=== PATIENT | female | born 1995 | race Hispanic/Latino ===

== ENCOUNTER 2022-05-04 06:44 | Day surgery (SDC) | payer SELFPAY ==
[2022-04-30 08:44] LABS: BASOPHILS % (AUTO) 0.6 % (0.0-5.0); EOSINOPHILS % (AUTO) 2.1 % (0.0-8.0); LYMPHOCYTES % (AUTO) 28.2 % (21.0-51.0); MEAN CORPUSCULAR HEMOGLOBIN 29.6 pg (27.0-33.0); MEAN CORPUSCULAR HGB CONC 33.7 g/dL (32.0-36.0); MONOCYTES % (AUTO) 8.2 % (3.0-13.0); NEUTROPHILS % (AUTO) 60.3 % (40.0-77.0); PLATELET COUNT (AUTO) 233 K/uL (130-400); RED BLOOD CELL COUNT(AUTO) 5.23 MIL/uL (4.00-5.50); RED CELL DISTRIBUTION WIDTH 12.3 % (11.0-15.5); WHITE BLOOD COUNT (AUTO) 5.4 K/uL (4.8-10.8)
[2022-04-30 08:49] VITALS: BP 127/77
[2022-04-30 08:53] LABS: CREATININE 0.6 mg/dL (0.5-1.5); POTASSIUM 4.7 mmol/L (3.5-5.1)
[2022-05-04] VITALS (13 sets, daily range): BP systolic 108–122; BP diastolic 68–79
[~2022-05-04] VITALS: Ht 157.5 cm; Wt 45.4 kg
[~2022-05-04 06:44] MED LIST: 0.9%NACL 1000ML 1,000 ML IV SCH; BUPIVACAINE/PF 0.5% 10ML VIAL ONE; LIDOCAINE HCL 1% 20 ML VIAL ONE
[2022-05-04] MEDS ORDERED: LACTATED RINGERS 1000ML 1,000 ML IV ONE (07:08)
[2022-05-04] MEDS: CEFAZOLIN SODIUM 1 GM VIAL IVPB SCH ×2 (07:25→08:13)
[2022-05-04] MEDS ORDERED: MIDAZOLAM HCL 1 MG/ML 2ML VIAL ONE (08:08)
[2022-05-04] MEDS ORDERED: ROCURONIUM 10MG/1ML SYR 10 MG/ML ML ONE (08:09)
[2022-05-04] MEDS ORDERED: FENTANYL CITRATE PF 50 MCG/1 ML 2ML VIAL ONE (08:09)
[2022-05-04] MEDS ORDERED: PROPOFOL 10 MG/ML 20ML VIAL IV ONE (08:09)
[2022-05-04] MEDS ORDERED: ONDANSETRON 4MG INJ ONE (08:56)
[2022-05-04] MEDS ORDERED: NEOSTIGMINE 5MG/5ML SYR IV ONE (09:15)
[2022-05-04] MEDS ORDERED: GLYCOPYRROLATE 1 MG/5 ML SYRINGE ONE (09:15)
== END 2022-05-04 10:55 | disposition home or self-care (01) ==
LOC: DAH 06:44
PROVIDERS: ATTEND Surgery
DX: L02.31 Cutaneous abscess of buttock (principal); D17.1 Benign lipomatous neoplasm of skin and subcutaneous tissue of trunk; Z20.822 Contact with and (suspected) exposure to COVID-19
CPT/HCPCS: 80048; 84703 ×2; 85025; 87426; 36415 ×2; 21931; A4663; A4452; J7120; J3010; J0690; J3490 ×2; J2710; J2250; J2704; J2405; A4215; A4223; A4222; A4221